=== PATIENT | female | born 2000 | race Caucasian/White ===

== ENCOUNTER 2023-08-09 21:08 | Emergency (ER) | payer OTHER, SELFPAY ==
[2023-08-09 21:11] VITALS: BP 125/81
--- NOTE | 2023-08-09 21:35 | ED.GENMED ---
History of Present Illness
General
Chief Complaint: Allergic Reaction
Source: patient
Exam Limitations: none
Time Seen by Provider: 08/09/23 21:25
History of Present Illness
History of Present Illness:
This is a 23 year old female that comes in with c/o allergic reaction. States that it was a normal day Patient went to work and then with a friend and out to the store. States that she started to not fell well when she was in the store. States that
she went home and sat down to watch a move with her mom and sister when he neck became red and itchy. States that she went to the [place] and saw that her face was swelling and she started to have difficultly breathing. States that she was
hyperventilating and she was tingling. States that she took Benadryl 50mg at home. States that she has a headache. Denies any fever, chills, chest pain, abd pain, nausea, vomiting, diarrhea, dizziness, urinary burning. Denies any new soaps, lotions
or detergents.
Past History
Past History
ED Past Medical History: Psychiatric (Anxiety, Denies depression) and Other (Acne, )
ED Past Surgical History: Other (Hymenectomy)
Social History
Tobacco: Non-smoker
Alcohol: Occasional
Personal: Single
Living: with family
Employment: Employed
Review of Systems
Review of Systems
All Other Systems: ROS reviewed and negative except as documented in HPI and ROS
Constitutional: Reports no symptoms; Denies fever or chills
EENT: Reports no symptoms
Respiratory: Reports trouble breathing; Denies cough
Cardiac: Reports no symptoms; Denies chest pain
ABD/GI: Reports no symptoms; Denies abdominal pain, nausea, vomiting or diarrhea
: Reports no symptoms; Denies dysuria, frequency or urgency
Musculoskeletal: Reports no symptoms
Skin: Reports rash (Hives on face and redness of the neck into the upper chest. Itchy)
Neurological: Reports headache; Denies dizzy
Psychiatric: Reports no symptoms
Phy Exam
General Physical Exam
General Presentation: no apparent distress
General age: appears stated age
General Skin: warm and dry
General Habitus: normal
General Mental: alert
General Hydration: appears well hydrated
ENT Exam
ENT Exam: TM's normal, pharynx normal and neck supple
Eye Exam
Eye Exam: EOMI
Cardiovascular Exam
Cardiovascular Exam: regular rate/rhythm, no edema, no murmur and normal peripheral pulses
Pulmonary Exam
Pulmonary Exam: lungs clear, no respiratory distress, no rales, chest non tender, no crackles, no rhonchi, no wheezing and no cough
Gastrointestinal Exam
Gastrointestinal Exam: normal bowel sounds, non tender, soft, no organomegaly, no pulsatile mass and non distended
Musculoskeletal Exam
Musculoskeletal Exam: full ROM and no edema
Skin Exam
Skin Exam: warm/dry, no petechia and redness (of the neck down into the upper chest. Hives noted on the lower chin and the left lower abd)
Psychiatric Exam
Psychiatric Exam: normal mood/affect
Course
Orders/Labs/Results
Orders:
Orders
08/09/23 21:35
Dexamethasone Sod Phosphate [Decadron] 20 mg IV NOW STA
Famotidine [Pepcid] 20 mg IV NOW STA
Vital Signs
Initial and Last Documented VS:
Initial Vital Signs
Temp Pulse Resp BP Pulse Ox
98.6 F 81 20 125/81 99
08/09/23 21:11 08/09/23 21:11 08/09/23 21:11 08/09/23 21:11 08/09/23 21:11
Last Documented Vital Signs
Temp Pulse Resp BP Pulse Ox
98.6 F 77 14 97/58 98
08/09/23 21:11 08/09/23 23:02 08/09/23 23:02 08/09/23 23:02 08/09/23 23:02
MDM/Problems Addressed
Differential Diagnosis Includes:
Allergic reaction,
MDM/Problems Addressed:
This is a 23 year old female that comes in with c/o allergic reaction. State that she was sitting watching TV when her neck started get red and her face was swelling. States that she had difficulty breathing as she was hyperventilating and her body
started to tingle.
will give IV Decadron and Pepcid. Patient to Benadryl 50mg at home.
back into see patient. patient hives are now gone on her face and redness has decreased. Explained to patient that she can continue with the Benadryl 50mg every 6 hours for the next 24 hours. She can also use Pepcid which is over the counter to help
decrease the histamine. Patient can follow up with the Family doctor or an Wiping Cloth Cutter. Patient to return with any concerns.
Chronic conditions affecting care:
NA
Acute Exacerbation and/or Progression of Chronic Illness:
NA
*Pulse Oximetry
Patient hypoxic: no
*EKG
Interpreted by ED Provider?: NA
Rate: EKG- N/A
*Smasher Hand Interpretation
Rate: Smasher Hand- N/A
*Critical Care Note
Total Time (30-74mins, 75-104mins- exclusive of procedures): Not Applicable
ED Attending Note
-
Portions of this chart may have been created with voice recognition software.� Occasional wrong word or��sound alike� substitutions may have occurred due to the inherent limitations of voice recognition software.
Discharge Plan
Departure
Patient Disposition: Home (Routine Discharge)
Date of Disposition: 08/09/23
Time of Disposition: 23:22
Patient with high blood pressure during this ER visit?: No
Condition: Good
Covid-19: Not Applicable
Discharge Problem:
Allergic reaction
Instructions: Hives (DC)
Referrals:
NONE,* [Family Provider] -
Activity Restrictions/Additional Instructions:
As discussed, unsure what cause your allergic reaction. The steroid that you have been given will stay in your system for the next few days. You can continue with Benadryl 50mg every 6 hours for the next 24 hours. You may also use Pepcid 20mg
daily. This will help decrease the histamine release. Please increase your water intake to 8-8oz glasses daily. Follow up with the family doctor and an pipe testing technician for further evaluation. IF YOU HAVE ANY SHORTNESS OF BREATH, DIFFICULTY BREATHING OR
YOU HAVE ANY OTHER CONCERNS PLEASE RETURN TO THE EMERGENCY ROOM.
Interventions
Interventions:
*Risk Screen - Suicide Last Done: 08/09/23 21:11
*General Assessment Last Done: 08/09/23 21:11
*Neglect/Abuse Screening Last Done: 08/09/23 21:11
ED- Fall Risk Assessment Last Done: 08/09/23 21:11
*ED COVID-19 Vaccine History Last Done: 08/09/23 21:11
ED- Cardiac Assessment Last Done: 08/09/23 23:02
ED- Pulmonary Assessment Last Done: 08/09/23 21:30
ED-Skin Assessment Last Done: 08/09/23 23:02
Discharge Date and Time
Print Language: [id number]
[2023-08-09] MEDS: PEPCID 20 MG IV (21:43)
[2023-08-09] MEDS: DECADRON 20 MG IV (21:44)
[2023-08-09 23:02] VITALS: BP 97/58
== END 2023-08-09 23:52 | disposition home or self-care (01) ==
LOC: EMR 21:08
PROVIDERS: EMERGENCY PHYSICIAN Emergency Medicine
DX: T78.40XA Allergy, unspecified, initial encounter (principal); R06.4 Hyperventilation; L50.0 Allergic urticaria; R20.2 Paresthesia of skin; R51.9 Headache, unspecified; R22.0 Localized swelling, mass and lump, head; F41.9 Anxiety disorder, unspecified
CPT/HCPCS: 99284; 96374; 96375